=== PATIENT | female | born 1965 | race Caucasian/White ===

== ENCOUNTER 2016-06-25 20:28 | Inpatient (IN) | payer MEDICARE, MEDICAID ==
[~2016-06-25] VITALS: Ht 157.5 cm; Wt 70.5 kg
[~2016-06-25 20:28] MED LIST: ACTONEL150 MG PO; CORTEF DPS5 MG PO; CORTEF10 MG PO; COZAAR100 MG PO; CYMBALTA30 MG PO; DEMADEX DPS100 MG PO; DESYREL DPS100 MG PO; EVOXAC30 MG PO; FLONASE 0.05% D16 GM NS; FLOVENT 220MCG12 GM IH; GLUCOSAMINE/CHO1 TAB PO; LEVITRA20 MG PO; MILK THISTLE140 M1 PO; NEURONTIN DPS600 MG PO; NIACIN FLUSH F400 MG PO; OXYCONTIN40 MG PO; PRILOSEC DPS20 MG PO; SUPER OMEGA-31000 MG PO; VITAMIN E400 UNI1 PO; XANAX DPS1 MG PO; XOPENEX1.25 MG/3 IH
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
[2016-06-29] MEDS ORDERED: KLONOPIN DPS1 MG PO (19:50)
[2016-06-29] MEDS ORDERED: DESYREL DPS100 MG PO (19:50)
[2016-06-29] MEDS ORDERED: TYLENOL DPS325 MG PO (19:50)
[2016-06-29] MEDS ORDERED: XANAX DPS1 MG PO (19:50)
[2016-06-29] MEDS ORDERED: NEURONTIN DPS600 MG PO (19:51)
[2016-06-29] MEDS ORDERED: SENNA S TABLET1 EACH PO (19:51)
[2016-06-29] MEDS ORDERED: KLONOPIN2 MG PO (19:51)
[2016-06-29] MEDS ORDERED: [UNRECOGNIZED DRUG - OTHER] VG (19:53)
[2016-06-29] MEDS ORDERED: L-ARGININE500 M1 PO (19:54)
[2016-06-29] MEDS ORDERED: FLOVENT 220MCG12 GM IH (19:54)
[2016-06-29] MEDS ORDERED: GLUCOSAMINE HC500 MG PO (19:54)
[2016-06-29] MEDS ORDERED: OMEGA-3 DPS1000 MG PO (19:54)
[2016-06-29] MEDS ORDERED: NORVASC5 MG PO (19:54)
[2016-06-29] MEDS ORDERED: CORTEF10 MG PO (19:55)
[2016-06-29] MEDS ORDERED: FLONASE 0.05% D16 GM NS (19:55)
[2016-06-29] MEDS ORDERED: MAG-OX400 MG PO (19:55)
[2016-06-29] MEDS ORDERED: CALTRATE-600 W600 MG PO (19:55)
[2016-06-29] MEDS ORDERED: SLO NIACIN DPS500 MG PO (19:55)
[2016-06-29] MEDS ORDERED: OMEPRAZOLE40 MG PO (19:55)
[2016-06-29] MEDS ORDERED: ASCORBIC ACID500 MG PO (19:56)
[2016-06-29] MEDS ORDERED: CORTEF DPS5 MG PO (19:56)
[2016-06-29] MEDS ORDERED: FEOSOL-DPS325 MG PO (19:56)
[2016-06-29] MEDS ORDERED: SUPER B COMPLE150 MG PO (19:56)
[2016-06-29] MEDS ORDERED: ZYRTEC DPS10 MG PO (19:56)
[2016-06-29] MEDS ORDERED: COZAAR100 MG PO (19:56)
[2016-06-29] MEDS ORDERED: EVOXAC30 MG PO (19:57)
[2016-06-29] MEDS ORDERED: VITAMIN B-121000 MCG PO (19:57)
[2016-06-29] MEDS ORDERED: CYMBALTA30 MG PO (19:57)
[2016-06-29] MEDS ORDERED: MEGA MULTIVIT1 EAC1 PO (19:57)
[2016-06-29] MEDS ORDERED: TEGRETOL DPS200 MG PO (19:58)
[2016-06-29] MEDS ORDERED: K-PHOS NEUTRAL250 MG PO (19:58)
--- NOTE | 2016-07-18 09:07 | DS ---
ADMIT: 06/25/2016 RM/LOC: 522 [facility] MR#: [id number] [facility]#: [id number] 2620 [facility] [address] [place], [place] [phone] YOHAN CONTI [address] [address] [place] [address] General Discharge Summary SEX: F AGE: 50 : 1965 ADMISSION DATE: 06/25/2016 DISCHARGE DATE: 06/29/2016 FINAL DIAGNOSES: 1. Altered mental status. 2. Acute respiratory failure. 3. Amphetamine abuse. 4. Acute hypotension. 5. Buerger disease. 6. Hypocalcemia. 7. Chronic adrenal insufficiency. 8. Hyperkalemia. 9. Marijuana abuse. 10.Chronic narcotic abuse with likely overdose. 11.Chronic hepatitis C. 12.Epilepsy. 13.Chronic obstructive pulmonary disease. 14.Hypertensive kidney disease. 15.Chronic kidney disease. 16.Chronic pain. 17.Major depressive disorder. 18.Anxiety disorder. 19.Low back pain. 20.Asthma. 21.Osteoporosis. 22.Nicotine dependence. REASON FOR ADMISSION: The patient is a 50-year-old, white female, who was transferred to [place] from [place] where she had been seen in clinic due to coughing illness. She had been getting IV ceftriaxone and steroids, and while they are getting those infusions, she became unresponsive and hypotensive. Initially, it sounds like she was intubated and given CPR. She then was transported to the [place] Emergency Room where she was extubated as she was waking up and was transferred here for further evaluation and treatment. On exam initially, her blood pressure was 67/31, temp was normal at 95.9, pulse 87, respirations 14, and sats were 96% on oxygen. She was oriented, but hard to understand and was very sleepy still. Lungs had some mild wheezing and coughing. No other focal neurologic deficits noted. HOSPITAL COURSE: The patient was admitted to the intensive care unit. She was monitored closely and started on alcohol withdrawal protocol and IV fluids, IV hydrocortisone, and vancomycin, and Merrem for possible underlying pneumonia. She was also noted to have hyperkalemia and hypocalcemia and hypophosphatemia during her stay, and those were all corrected. Social Work was consulted, and she declined any treatment. Over the next few days, she did stabilize, and we continue to replace electrolytes. She did well from a pain control standpoint. Once electrolytes were stabilized, she was felt safe to discharge to home on 06/29. ADMIT: 06/25/2016 RM/LOC: 522 [facility] MR#: [id number] [address] [phone] YOHAN CONTI [address] [place], [place] [id number] General Discharge Summary SEX: F AGE: 50 : 1965 DISCHARGE INSTRUCTIONS: The patient will follow up with Dr. Pan in [place] on July 02. She was started on: 1. Vitamin D 50,000 units weekly. 2. Caltrate with vitamin D 600 mg daily. 3. Cymbalta 30 mg daily. 4. Desyrel 100 mg at bedtime. 5. Evoxac 30 mg t.i.d. 6. Glucosamine with chondroitin 1 tab b.i.d. 7. Neurontin 600 mg t.i.d. 8. Norvasc 5 mg daily. 9. Omeprazole 40 mg b.i.d. 10.Senokot 3 tabs at bedtime. 11.Tegretol 200 mg daily. 12.Asmanex 2 puffs daily. 13.Flonase 1 spray in each nostril daily. 14.Tylenol 650 mg q.4 hours p.r.n. 15.Xanax 1 mg q.12 hours p.r.n. and was recommended that she stay off her home Adderall, alprazolam, OxyContin, risedronate, but she can stay on her hydrocortisone 10 mg in the morning and 5 mg in the evening. We will also add potassium phosphate 250 mg p.o. b.i.d., and she will follow up with Dr. Pan for repeat BMP, phosphorus, and magnesium levels and can continue to replace those as needed. Bren Desai MD/ jenniffer JOB #: [id number] CC: Bren Desai MD, Attending Physician Bren Desai MD, Family Physician
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
== END 2016-06-29 10:12 | disposition home or self-care (01) | DRG 917 ==
LOC: ER 20:28 → 3ICU 22:42 → 5MS 06-28 16:19
PROVIDERS: ADMIT Family Medicine
PROC: HZ2ZZZZ Detoxification Services for Substance Abuse Treatment (ICD-10-PCS; principal; 2016-06-25)
DX: T40.601A Poisoning by unspecified narcotics, accidental (unintentional), initial encounter (principal); J96.90 Respiratory failure, unspecified, unspecified whether with hypoxia or hypercapnia; I95.9 Hypotension, unspecified; I73.1 Thromboangiitis obliterans [Buerger's disease]; E83.51 Hypocalcemia; E27.40 Unspecified adrenocortical insufficiency; E87.5 Hyperkalemia; F15.10 Other stimulant abuse, uncomplicated; F12.10 Cannabis abuse, uncomplicated; R79.89 Other specified abnormal findings of blood chemistry; B18.2 Chronic viral hepatitis C; G40.909 Epilepsy, unspecified, not intractable, without status epilepticus; J44.9 Chronic obstructive pulmonary disease, unspecified; I12.9 Hypertensive chronic kidney disease with stage 1 through stage 4 chronic kidney disease, or unspecified chronic kidney disease; N18.9 Chronic kidney disease, unspecified; G89.4 Chronic pain syndrome; F32.9 Major depressive disorder, single episode, unspecified; F41.9 Anxiety disorder, unspecified; M54.9 Dorsalgia, unspecified; J45.909 Unspecified asthma, uncomplicated; M81.0 Age-related osteoporosis without current pathological fracture; F17.200 Nicotine dependence, unspecified, uncomplicated

== ENCOUNTER → 2016-08-02 | Outpatient (CLI) | payer MEDICARE, MEDICAID ==
[~2016-08-02] MED LIST changes: +ASCORBIC ACID500 MG PO; +CALTRATE-600 W600 MG PO; +FEOSOL-DPS325 MG PO; +GLUCOSAMINE HC500 MG PO; +K-PHOS NEUTRAL250 MG PO; +KLONOPIN DPS1 MG PO; +KLONOPIN2 MG PO; +L-ARGININE500 M1 PO; +MAG-OX400 MG PO; +MEGA MULTIVIT1 EAC1 PO; +NORVASC5 MG PO; +OMEGA-3 DPS1000 MG PO; +OMEPRAZOLE40 MG PO; +SENNA S TABLET1 EACH PO; +SLO NIACIN DPS500 MG PO; +SUPER B COMPLE150 MG PO; +TEGRETOL DPS200 MG PO; +TYLENOL DPS325 MG PO; +VITAMIN B-121000 MCG PO; +ZYRTEC DPS10 MG PO; +[UNRECOGNIZED DRUG - OTHER] VG
--- NOTE | ~2016-08-02 | CST ---
Cardiac Perfusion Imaging Demographics Patient Name SUSHILA Conway Gender Female Patient Number [id number] Race Visit Number [id number] Ethnicity Corporate ID Room Number Accession Number [id number] Height 61 inches Date of 1965 Weight 135 pounds Age 50 year(s) BSA 1.6 m Referring Physician Maxim Nicolas BMI 25.51 kg/m MD Interpreting [facility] Date of study 08/02/2016 Physician King Pedro Christian MD Supervising MD/MLP King Pedro Christian MD NM Technologist Gianni Medina, [facility] Ordering Physician Maxim Nicolas Stress MD quality control technician Stress ECG Reading [facility] Nurse Estevan Alicea Physician King Pedro Hilario The procedure was explained in detail to the patient. Risks, complications and alternative treatments were reviewed. Written consent was obtained. Medications Reviewed with Patient prior to Procedure. Procedure Procedure Type: Nuclear Stress Test:Pharmacological, Lexiscan Procedure Start time: 08/02/2016 08:45 End time: 08/02/2016 00:00 Indications: Hyperlipidemia, Hypertension and Chest pain. Risk Factors The patient risk factors include:Current/Recent(w/in 1 year) tobacco use, treated hypercholesterolemia, treated hypertension, chronic lung disease, dyslipidemia and prior heart failure . Conclusions Summary Perfusion Images: The overall quality of the study is good. Left ventricular cavity is noted to be normal on the stress and rest studies. There is no evidence of abnormal lung activity. The right ventricle is not visualized and cannot be assessed. Stress SPECT images demonstrate homogenous tracer distribution throughout the myocardium. Rest SPECT images demonstrate homogenous tracer distribution throughout the myocardium. Gated SPECT imaging reveals normal myocardial thickening and wall motion. The left ventricular ejection fraction was calculated to be 75%. Impression ECG portion of stress test is clinically negative for ischemia by diagnostic criteria. Myocardial perfusion imaging is normal. Overall left ventricular systolic function was normal without regional wall motion abnormalities. There are no previous studies for comparison. Stress Protocols Resting ECG Normal sinus rhythm. Resting HR:67 bpm Resting BP:140/85 mmHg Stress Protocol:Pharmacologic - Lexiscan Predicted HR: 171 bpm Test duration: 06:00 min Reason for termination:Infusion complete ECG Findings Normal sinus rhythm. Complications Procedure complication: None. Stress Interpretation Appropriate hemodynamic response to Lexiscan. No significant ST-T wave changes with Lexiscan. ECG portion is negative for ischemia by diagnostic criteria. Imaging Results Summed scores - Summed stress score: 0 - Summed rest score: 0 - Summed difference score: 0 Stress ejection Ejection fraction:75 % EDV :92 ml ESV :23 ml Stroke volume :69 ml LV mass :120 gr Imaging Protocols Rest Stress Isotope:Tc99m Myoview IV Isotope: Tc99m Myoview IV Isotope dose:10.3 mCi Isotope dose:31.9 mCi Date:08/02/2016 07:15 Date:08/02/2016 08:45 Technique: SPECT Technique: Gated Supine SPECT Supine Scan Time:30 minutes post injection Scan Time:15-30 minutes post injection Procedure Medications - Regadenoson (Lexiscan) 0.4 mg IV over 10-15 sec. I.V. 0.4 mg. Medications administered per verbal order and read back to physician prior to administration. Medical History Admission Data Admission date: 08/02/2016 Admission Time: 06:59 Hospital Status: Outpatient. Signatures
== END | disposition home or self-care (01) ==
LOC: CARD 06:59
DX: R07.9 Chest pain, unspecified (principal)